=== PATIENT | male | born 1950 | race Caucasian/White ===

== ENCOUNTER 2019-05-20 15:01 | Inpatient (IN) | payer OTHER, BC ==
[2019-05-20 16:24] LABS: Absolute Lymphocytes (CBC) 1.3 K/uL (0.7-4.9); Basophils % 0.5 % (0-1.3); Hematocrit 31.4 % (39.6-49.0); Lymphocytes % 10.9 % (15.3-44.8); MPV 11.3 fL (7.6-11.3); RBC Red Blood Cell Count 3.34 M/uL (4.33-5.43)
[2019-05-20 16:28] LABS: Urine Blood NEGATIVE (NEG); Urine Glucose NEGATIVE (NEG); Urine Protein NEGATIVE (NEG); Urine Specific Gravity 1.015 (1.005-1.030); Urine pH 5.5 (5.0-7.0)
[2019-05-20 16:35] LABS: Bilirubin Direct 0.2 mg/dL (0-0.2); Bilirubin Total 0.5 mg/dL (0.2-1.0); Potassium 4.7 mmol/L (3.5-5.1); Protein, Total 7.4 g/dL (6.4-8.2)
[2019-05-20] MEDS ORDERED: NA CHLORIDE 0.9% 1,000 ML ONE (16:52)
--- NOTE | 2019-05-20 18:25 | RAD REPORT ---
EXAM DESCRIPTION: CT - Abdomen Pelvis Wo Contrast - 05/20/2019 6:16 pm CLINICAL HISTORY: abd pain COMPARISON: No comparisons TECHNIQUE: Axial [address] imaging of the abdomen and pelvis was performed without IV contrast. No IV contrast was given because of allergy, abnormal renal function, patient refusal or physician re quest. Oral contrast was given. All CT scans are performed using dose optimization technique as appropriate and may include automated exposure control or mA/KV adjustment according to patient size. FINDINGS: No suspicious findings in the lung bases. Small granuloma seen posterior lower right lung field. The liver, spleen and pancreas show no suspicious findings on non-contrast imaging. Cholecystectomy c lips are present. No biliary tree dilatation. No hydronephrosis or suspicious renal mass. No significant adrenal finding. Isodense renal masses an d pyelonephritis cannot be excluded in the absence of IV contrast. The urinary bladder is without sig nificant finding. Prostate gland and seminal vesicles normal range. No gastric dilatation or gastric wall thickening. Oral contrast does not quite reach the ileocecal va lve. No dilated large or small bowel. Air is present within the lumen of the proximal appendix. Old c ontrast or appendicolith present in the distal appendix. Distal appendix is prominent at 8 mm but no periappendiceal stranding seen. Current findings are not sufficient for an acute appendicitis diagnos is. No free air, free fluid or inflammatory stranding. No hernia, mass or bulky lymphadenopathy. No suspicious bony findings. IMPRESSION: Distal appendix is prominent in size with a small appendicolith or contrast present. Pro ximal appendix is air-filled. The current findings of the appendix and surrounding tissues are not yet sufficient for an appendicit is diagnosis. Remainder the study is without acute finding. Repeat imaging can be performed if the patient continues to have clinical findings or laboratory find ings suggesting progression cords acute appendicitis. Full assessment is limited is the absence of IV contrast.
[2019-05-20] MEDS ORDERED: PIPER/TAZO/NS 3.375gm 3.375 GM/100 ML BAG ONE (19:27)
[2019-05-20] MEDS ORDERED: MORPHINE 4 MG/ML SYR ONE (19:27)
[2019-05-20] MEDS ORDERED: ONDANSETRON 4 MG/2 ML VIAL IV PRN (20:06)
[2019-05-20] MEDS ORDERED: ACETAMINOPHEN 500 MG TAB PO PRN (20:06)
[2019-05-20] MEDS ORDERED: HYDROMORPHONE HCL 1 MG/ML INJ ONE (20:17)
[2019-05-20] MEDS ORDERED: D50W 25 GM/50 ML SYRINGE IV PRN (20:21)
[2019-05-20] MEDS ORDERED: GLUCAGON 1 MG/VIAL IM PRN (20:21)
[2019-05-20] MEDS: INSULIN -REGULAR HUMAN 50 UNIT/0.5 ML ML SQ SCH (21:00)
--- NOTE | 2019-05-20 21:05 | ER ---
Nurse's Notes [facility] Name: Fer Rogel Age: 68 yrs Sex: Male : 1950 Arrival Date: 05/20/2019 Time: 15:04 Bed 7 Private MD: Diagnosis: Lower abdominal pain, unspecified-RLQ Presentation: 05/20 15:08 Presenting complaint: Patient states: RLQ pain for the past 3 days that got worse ss today. Patient also reports diarrhea for the past 5 days. Denies N/V. Transition of care: patient was not received from another setting of care. Onset of symptoms was May 20, 2019. Risk Assessment: Do you want to hurt yourself or someone else? Patient reports no desire to harm self or others. Initial Sepsis Screen: Does the patient meet any 2 criteria? No. Patient's initial sepsis screen is negative. Does the patient have a suspected source of infection? Yes: Acute abdominal pain. Care prior to arrival: None. 15:08 Method Of Arrival: Wheelchair ss 15:08 Acuity: HODA 3 ss Triage Assessment: 15:16 General: Appears in no apparent distress. uncomfortable, Behavior is calm, cooperative, ss appropriate for age. Pain: Complains of pain in right lower quadrant Pain currently is 8 out of 10 on a pain scale. Neuro: Level of Consciousness is awake, alert, obeys commands. Cardiovascular: Patient's skin is warm and dry. Respiratory: Airway is patent Respiratory effort is even, unlabored, Respiratory pattern is regular, symmetrical. GI: Reports lower abdominal pain, diarrhea. Historical: - Allergies: 15:16 No Known Allergies; ss - Home Meds: 15:16 Lantus 100 unit/mL Sub-Q soln 70 to 80 units in the morning 35 units in the evening ss [Active]; Humalog 100 unit/mL Sub-Q crtg sliding scale [Active]; citalopram 20 mg tab 1 tab once daily [Active]; esomeprazole magnesium 40 mg oral cpDR 1 cap once daily [Active]; omega-3 fatty acids 1,000 mg oral cap daily [Active]; carvedilol 25 mg oral tab 1 tab 2 times per day [Active]; fenofibrate 150 mg oral cap 1 cap once daily [Active]; atorvastatin 40 mg oral tab 1 tab once daily [Active]; Furosemide Oral 2.5 tabs in the morning, 1/2 a tab at noon [Active]; spironolactone 50 mg Oral tab 2 tabs 2 times per day [Active]; allopurinol 300 mg Oral tab 1 tab once daily [Active]; Januvia 50 mg oral tab 1 tabs once daily [Active]; benazepril 5 mg oral tab 2 tabs 2 times per day [Active]; amlodipine 10 mg tab 1 tab once daily [Active]; - PMHx: 15:16 Diabetes - NIDDM; renal insufficiency; ss - Immunization history:: Flu vaccine is up to date. - Social history:: Smoking status: Patient/guardian denies using tobacco. - Ebola Screening: : Patient denies travel to an Ebola-affected area in the 21 days before illness onset. Screenin:30 Abuse screen: Denies threats or abuse. Denies injuries from another. Nutritional sv screening: No deficits noted. Tuberculosis screening: No symptoms or risk factors identified. Fall Risk None identified. Assessment: 15:30 General: Appears in no apparent distress. uncomfortable, well developed, Behavior is sv cooperative, appropriate for age, anxious. Pain: Complains of pain in right lower quadrant Pain currently is 8 out of 10 on a pain scale. Neuro: Level of Consciousness is awake, alert, obeys commands, Oriented to person, place, time, situation, Moves all extremities. Full function Gait is steady. Cardiovascular: Rhythm is sinus rhythm. Respiratory: Airway is patent Respiratory effort is even, unlabored, Respiratory pattern is regular, symmetrical. GI: Abdomen is round Abd is soft X 4 quads Abdomen is tender to palpation in right lower quadrant Reports lower abdominal pain, diarrhea, nausea. Derm: Skin is pink, warm \T\ dry. Musculoskeletal: Range of motion: intact in all extremities. 16:34 Reassessment: Patient appears in no apparent distress at this time. Patient and/or sv family updated on plan of care and expected duration. Pain level reassessed. Patient is alert, oriented x 3, equal unlabored respirations, skin warm/dry/pink. 16:35 Reassessment: Pt finished drinking oral contrast, CT notified. hb 18:00 Reassessment: Patient appears in no apparent distress at this time. No changes from sv previously documented assessment. Patient and/or family updated on plan of care and expected duration. Pain level reassessed. Patient is alert, oriented x 3, equal unlabored respirations, skin warm/dry/pink. 19:30 General: Appears uncomfortable. Neuro: Level of Consciousness is awake, alert, obeys lp1 commands, Oriented to person, place, time, situation, tremors noted, patient states normal. Respiratory: Respiratory effort is even, Respiratory pattern is regular. GI: Abdomen is round Bowel sounds present X 4 quads. Abdomen is tender to palpation in right lower quadrant. Derm: Skin is intact, Skin is dry, Skin is pale. 20:09 Reassessment: Patient and/or family updated on plan of care and expected duration. Pain bb level reassessed. Kay CANCINO at bedside for discussion of findings and recommendations pt to be admitted for further evaluation and treatment, pt and family verbalized understanding of and agree to plan of care. Pt reports pain is still 8/ new orders received pt medicated see NOV. 20:20 Reassessment: Attempted to call report at this time. lp1 20:25 Reassessment: Patient at 84% on RA after administration of Dilaudid IV; Placed on NC at lp1 2L, O2 at 95%. 20:40 Reassessment: Dr De La Cruz at bedside for discussion of findings and recommendations bb with pt and spouse. Vital Signs: 15:16 BP 159 / 67; Pulse 60; Resp 18; Temp 97.2(TE); Pulse Ox 98% on R/A; Weight 90.72 kg ss (R); Height 5 ft. 11 in. (180.34 cm) (R); Pain 8/10; 16:35 BP 160 / 61; Pulse 66; Resp 21; Pulse Ox 98% ; sv 17:15 BP 157 / 58; Pulse 66; Resp 19; Pulse Ox 95% ; sv 18:00 BP 130 / 48; Pulse 53; Resp 18; Pulse Ox 97% ; sv 19:35 BP 155 / 57; Pulse 60; Resp 19; Temp 98.6(O); Pulse Ox 96% on R/A; Pain 10/10; lp1 20:11 BP 130 / 49; Pulse 60; Resp 20 S; Temp 100.5(O); Pulse Ox 97% on R/A; Pain 8/10; bb 20:30 BP 140 / 51; Pulse 62; Resp 19; Temp 101.7(O); Pulse Ox 97% on 2 lpm NC; lp1 15:16 Body Mass Index 27.89 (90.72 kg, 180.34 cm) ED Course: 15:04 Patient arrived in ED. mr 15:10 Triage completed. ss 15:16 Arm band placed on Patient placed in an exam room. ss 15:19 Ahsan Kaba PA is PHCP. cp 15:19 Curtis Garduno MD is Attending Physician. cp 15:22 Constanza Schaefer, RN is Primary Nurse. sv 15:30 Patient has correct armband on for positive identification. Bed in low position. Call sv light in reach. Adult w/ patient. medical technician assistant on. Pulse ox on. NIBP on. Door closed. Warm blanket given. Head of bed elevated. 15:30 Initial lab(s) drawn, by me, sent to lab. Inserted saline lock: 20 gauge in right sv antecubital area, using aseptic technique. Blood collected. Flushed right antecubital with 5 ml normal saline. 15:55 Urine collected: clean catch specimen, clear, mallika colored. jb1 18:32 CT Abd/Pelvis - PO Contrast Only Sent. sv 18:32 Urine Microscopic Only Sent. sv 18:32 Lactate Sent. sv 18:32 Lactate Sent. sv 18:32 Basic Metabolic Panel Sent. sv 18:32 CBC with Diff Sent. sv 18:32 Creatinine for Radiology Sent. sv 18:32 Hepatic Function Sent. sv 18:32 Lipase Sent. sv 19:08 Report given to Rachel OLIVEIRA. sv 19:09 Primary Nurse role handed off by Constanza Schaefer, TEE sv 19:21 Claudia Dumont, TEE is Primary Nurse. lp1 19:55 Monty Singh MD is Hospitalizing Provider. cp 20:02 No provider procedures requiring assistance completed. Patient admitted, IV remains in lp1 place. Administered Medications: 15:55 Drug: Zofran 4 mg Route: IVP; Site: left antecubital; sv 16:26 Follow up: Response: No adverse reaction hb 15:55 Drug: NS 0.9% 500 ml Route: IV; Rate: bolus; Site: left antecubital; sv 16:26 Follow up: Response: No adverse reaction; IV Status: Completed infusion; IV Intake: hb 500ml 15:57 Drug: morphine 4 mg {Note: RASS 1.} Route: IVP; Site: left antecubital; sv 16:26 Follow up: Response: No adverse reaction hb 16:25 Drug: NS 0.9% 1000 ml Route: IV; Rate: 100 ml/hr; Site: right antecubital; hb 20:57 Follow up: IV Status: IV converted to saline lock; IV Intake: 500ml lp1 16:52 Drug: NS 0.9% 1000 ml Route: IV; Rate: 1000 ml; Site: left antecubital; sv 18:00 Follow up: Response: No adverse reaction; IV Status: Completed infusion; IV Intake: sv 1000ml 16:52 CANCELLED (Duplicate Order): NS 0.9% 1000 ml IV at 1 bolus Per protocol; 1000 mL bolus sv 19:35 Drug: morphine 4 mg {Note: RASS 0.} Route: IVP; Site: left antecubital; lp1 20:00 Follow up: Response: Pain is unchanged, physician notified; RASS: Alert and Calm (0) lp1 19:35 Drug: Zosyn 3.375 grams Route: IVPB; Infused Over: 60 mins; Site: left antecubital; lp1 20:45 Follow up: IV Status: Completed infusion; IV Intake: 100ml lp1 20:12 Drug: Tylenol 1000 mg Route: PO; bb 20:26 Drug: Dilaudid 1 mg {Note: RASS 0.} Route: IVP; Site: left antecubital; lp1 20:39 Follow up: Response: No adverse reaction; Pain is decreased; RASS: Drowsy (-1) bb Point of Care Testing: Blood Glucose: 18:10 Blood Glucose: 130 mg/dL; sv 19:40 Blood Glucose: 118 mg/dL; oe Ranges: Intake: 16:26 IV: 500ml; Total: 500ml. hb 16:34 PO: 500ml (Contrast); Total: 1000ml. sv 18:00 IV: 1000ml; Total: 2000ml. sv 20:45 IV: 100ml; Total: 2100ml. lp1 20:57 IV: 500ml; Total: 2600ml. lp1 16:34 Called and informed Mehrdad in CT pt finished contrast. sv Outcome: 19:56 Decision to Hospitalize by Provider. cp 20:03 Condition: stable lp1 20:03 Instructed on the need for admit. 20:52 Admitted to Med/surg accompanied by tech, via wheelchair, room 210, with chart, Report lp1 called to TEE Hansen 21:15 Patient left the ED. lp1 Signatures: Julio Bocanegra Stephanie, RN RN Lizett Riley, Rachel RN RN bb Chhaya Miner RN RN ss Claudia Dumont RN RN lp1 Ahsan Kaba PA PA cp Baxter, Heather RN RN Warner Nicole Corrections: (The following items were deleted from the chart) 20:12 20:09 Reassessment: Patient and/or family updated on plan of care and expected bb duration. Pain level reassessed. Kay CANCINO at bedside for discussion of findings and recommendations pt to be admitted for further evaluation and treatment, pt and family verbalized understanding of and agree to plan of care. bb 20:59 20:30 BP 140 / 51; Pulse 62bpm; Resp 19bpm; Pulse Ox 97% 2 lpm Nasal Cannula; lp1 lp1 21:41 21:25 Patient left the ED. bb lp1
--- NOTE | 2019-05-20 21:06 | EDPHYS ---
Physician Documentation [facility] Name: Fer Rogel Age: 68 yrs Sex: Male : 1950 Arrival Date: 05/20/2019 Time: 15:04 Bed 7 Private MD: ED Physician Curtis Garduno HPI: 05/20 15:35 This 68 yrs old Male presents to ER via Wheelchair with complaints of cp Abdominal Pain, Diarrhea. 15:35 The patient presents with abdominal pain right lower quadrant. Onset: The cp symptoms/episode began/occurred yesterday, and became worse today. Associated signs and symptoms: Pertinent positives: diarrhea times 5 days. Historical: - Allergies: 15:16 No Known Allergies; ss - Home Meds: 15:16 Lantus 100 unit/mL Sub-Q soln 70 to 80 units in the morning 35 units in the evening ss [Active]; Humalog 100 unit/mL Sub-Q crtg sliding scale [Active]; citalopram 20 mg tab 1 tab once daily [Active]; esomeprazole magnesium 40 mg oral cpDR 1 cap once daily [Active]; omega-3 fatty acids 1,000 mg oral cap daily [Active]; carvedilol 25 mg oral tab 1 tab 2 times per day [Active]; fenofibrate 150 mg oral cap 1 cap once daily [Active]; atorvastatin 40 mg oral tab 1 tab once daily [Active]; Furosemide Oral 2.5 tabs in the morning, 1/2 a tab at noon [Active]; spironolactone 50 mg Oral tab 2 tabs 2 times per day [Active]; allopurinol 300 mg Oral tab 1 tab once daily [Active]; Januvia 50 mg oral tab 1 tabs once daily [Active]; benazepril 5 mg oral tab 2 tabs 2 times per day [Active]; amlodipine 10 mg tab 1 tab once daily [Active]; - PMHx: 15:16 Diabetes - NIDDM; renal insufficiency; ss - Immunization history:: Flu vaccine is up to date. - Social history:: Smoking status: Patient/guardian denies using tobacco. - Ebola Screening: : Patient denies travel to an Ebola-affected area in the 21 days before illness onset. ROS: 15:40 Constitutional: Positive for chills, Negative for fever, poor PO intake. cp 15:40 Eyes: Negative for injury, pain, redness, and discharge. cp 15:40 ENT: Negative for drainage from ear(s), ear pain, sore throat, difficulty swallowing, difficulty handling secretions. 15:40 Cardiovascular: Negative for chest pain, edema, palpitations. 15:40 Respiratory: Negative for shortness of breath, wheezing. 15:40 Abdomen/GI: Positive for abdominal pain, Negative for vomiting, diarrhea, constipation, black/tarry stool, rectal bleeding. 15:40 Back: Negative for pain at rest, pain with movement. 15:40 : Negative for urinary symptoms, testicular pain 15:40 Skin: Negative for rash. 15:40 Neuro: Negative for altered mental status, headache, numbness, syncope, weakness. 15:40 All other systems are negative. Exam: 15:50 Constitutional: The patient appears alert, awake, non-toxic, well developed, well cp nourished, diaphoretic, uncomfortable. 15:50 Head/Face: Normocephalic, atraumatic. cp 15:50 Eyes: Periorbital structures: appear normal, Conjunctiva: normal, no exudate, no injection, Sclera: no appreciated abnormality, Lids and lashes: appear normal, bilaterally. 15:50 ENT: External ear(s): are unremarkable, Nose: is normal, Mouth: Lips: moist, Oral mucosa: pink and intact, moist, Posterior pharynx: is normal, airway is patent, no erythema, no exudate. 15:50 Neck: ROM/movement: is normal, is supple, without pain, no range of motions limitations, no meningismus, no nuchal rigidity. 15:50 Chest/axilla: Inspection: normal, Palpation: is normal, no crepitus, no tenderness. 15:50 Cardiovascular: Rate: normal, Rhythm: regular, Edema: is not appreciated, JVD: is not appreciated. 15:50 Respiratory: the patient does not display signs of respiratory distress, Respirations: normal, no use of accessory muscles, no retractions, no splinting, no tachypnea, labored breathing, is not present, Breath sounds: are clear throughout, no decreased breath sounds, no stridor, no wheezing. 15:50 Abdomen/GI: Inspection: abdomen appears normal, Bowel sounds: active, all quadrants, Palpation: severe abdominal tenderness, in the right lower quadrant, involuntary guarding, is elicited in the right lower quadrant. 15:50 Back: pain, is absent, ROM is normal. 15:50 Skin: no rash present. 15:50 Neuro: Orientation: to person, place \T\ time. Mentation: is normal, Cerebellar function: is grossly normal, Motor: is normal. Vital Signs: 15:16 BP 159 / 67; Pulse 60; Resp 18; Temp 97.2(TE); Pulse Ox 98% on R/A; Weight 90.72 kg ss (R); Height 5 ft. 11 in. (180.34 cm) (R); Pain 8/10; 16:35 BP 160 / 61; Pulse 66; Resp 21; Pulse Ox 98% ; sv 17:15 BP 157 / 58; Pulse 66; Resp 19; Pulse Ox 95% ; sv 18:00 BP 130 / 48; Pulse 53; Resp 18; Pulse Ox 97% ; sv 19:35 BP 155 / 57; Pulse 60; Resp 19; Temp 98.6(O); Pulse Ox 96% on R/A; Pain 10/10; lp1 20:11 BP 130 / 49; Pulse 60; Resp 20 S; Temp 100.5(O); Pulse Ox 97% on R/A; Pain 8/10; bb 20:30 BP 140 / 51; Pulse 62; Resp 19; Temp 101.7(O); Pulse Ox 97% on 2 lpm NC; lp1 15:16 Body Mass Index 27.89 (90.72 kg, 180.34 cm) ss MDM: 15:36 Patient medically screened. 19:25 Data reviewed: vital signs, nurses notes, lab test result(s), radiologic studies, CT cp scan, I have discussed the patient's presentation/case with the attending Emergency Department Physician;. 19:25 Counseling: I had a detailed discussion with the patient and/or guardian regarding: the cp historical points, exam findings, and any diagnostic results supporting the discharge/admit diagnosis, lab results, radiology results, the need for further work-up and treatment in the hospital. Response to treatment: the patient's symptoms have mildly improved after treatment. 19:33 Physician consultation: León De La Cruz MD was called at 19:25, was contacted at 19:25, regarding consult, requests admittance to hospitalist services for abdominal pain and will see patient on floor later tonight or tomorrow for surgical evaluation. 19:51 Physician consultation: Monty Singh MD was called at 19:52, was contacted at 19:52, cp regarding admission, to the medical/surgical unit. patient's condition, wants Cipro 200 mg bid and Flagyl 500 mg TID. 05/20 15:25 Order name: Basic Metabolic Panel sv 05/20 15:25 Order name: CBC with Diff sv 05/20 15:25 Order name: Creatinine for Radiology sv 05/20 15:25 Order name: Hepatic Function sv 05/20 15:25 Order name: Lipase sv 05/20 15:42 Order name: Lactate sv 05/20 15:44 Order name: Lactate cp 05/20 15:44 Order name: Urine Microscopic Only cp 05/20 18:26 Order name: Urine Dipstick-Ancillary; Complete Time: 19:22 EDMS 05/20 18:26 Order name: Basic Metabolic Panel; Complete Time: 19:22 EDMS 05/20 18:26 Order name: Liver (Hepatic) Function; Complete Time: 19:22 EDMS 05/20 18:26 Order name: Lipase; Complete Time: 19:22 EDMS 05/20 18:26 Order name: CBC with Automated Diff; Complete Time: 19:22 EDMS 05/20 18:26 Order name: Creatinine (Radiology Only); Complete Time: 19:22 EDMS 05/20 15:44 Order name: CT Abd/Pelvis - PO Contrast Only cp 05/20 18:28 Order name: Lactate; Complete Time: 19:22 EDMS 05/20 18:31 Order name: Glucose, Ancillary Testing; Complete Time: 19:22 EDMS 05/20 19:02 Order name: Lactate hb 05/20 19:41 Order name: Lactate Sepsis 2 HR Follow-up; Complete Time: 19:53 EDMS 05/20 19:46 Order name: Glucose, Ancillary Testing; Complete Time: 19:53 EDMS 05/20 15:25 Order name: IV Saline Lock; Complete Time: 15:42 sv 05/20 15:25 Order name: Labs collected and sent; Complete Time: 15:42 sv 05/20 15:44 Order name: Urine Dipstick-Ancillary (obtain specimen); Complete Time: 15:56 cp 05/20 20:09 Order name: Accucheck Blood Glucose; Complete Time: 20:12 cp Administered Medications: 15:55 Drug: Zofran 4 mg Route: IVP; Site: left antecubital; sv 16:26 Follow up: Response: No adverse reaction hb 15:55 Drug: NS 0.9% 500 ml Route: IV; Rate: bolus; Site: left antecubital; sv 16:26 Follow up: Response: No adverse reaction; IV Status: Completed infusion; IV Intake: hb 500ml 15:57 Drug: morphine 4 mg {Note: RASS 1.} Route: IVP; Site: left antecubital; sv 16:26 Follow up: Response: No adverse reaction hb 16:25 Drug: NS 0.9% 1000 ml Route: IV; Rate: 100 ml/hr; Site: right antecubital; hb 20:57 Follow up: IV Status: IV converted to saline lock; IV Intake: 500ml lp1 16:52 Drug: NS 0.9% 1000 ml Route: IV; Rate: 1000 ml; Site: left antecubital; sv 18:00 Follow up: Response: No adverse reaction; IV Status: Completed infusion; IV Intake: sv 1000ml 16:52 CANCELLED (Duplicate Order): NS 0.9% 1000 ml IV at 1 bolus Per protocol; 1000 mL bolus sv 19:35 Drug: morphine 4 mg {Note: RASS 0.} Route: IVP; Site: left antecubital; lp1 20:00 Follow up: Response: Pain is unchanged, physician notified; RASS: Alert and Calm (0) lp1 19:35 Drug: Zosyn 3.375 grams Route: IVPB; Infused Over: 60 mins; Site: left antecubital; lp1 20:45 Follow up: IV Status: Completed infusion; IV Intake: 100ml lp1 20:12 Drug: Tylenol 1000 mg Route: PO; bb 20:26 Drug: Dilaudid 1 mg {Note: RASS 0.} Route: IVP; Site: left antecubital; lp1 20:39 Follow up: Response: No adverse reaction; Pain is decreased; RASS: Drowsy (-1) bb Point of Care Testing: Blood Glucose: 18:10 Blood Glucose: 130 mg/dL; sv 19:40 Blood Glucose: 118 mg/dL; oe Ranges: Critical Glucose Levels:Adult <50 mg/dl or >400 mg/dl <40 mg/dl or >180 mg/dl Disposition: 05/21 07:21 Co-signature as Attending Physician, Curtis Garduno MD I agree with the assessment and kdr plan of care. Disposition: 05/20/19 19:56 Hospitalization ordered by Monty Singh for Inpatient Admission. Preliminary diagnosis is Lower abdominal pain, unspecified - RLQ. - Bed requested for Telemetry/MedSurg (Inpatient). - Status is Inpatient Admission. bb - Condition is Stable. - Problem is new. - Symptoms have improved. UTI on Admission? No Signatures: Dispatcher [employer] EDMS Constanza Schaefer RN RN Marisa Alvarez, RN RN Curtis Garduno MD MD [facility] Rachel Mart RN RN bb Chhaya Miner RN TEE ss Claudia Dumont RN RN lp1 Ahsan Kaba PA PA Clover Frankel RN RN Corrections: (The following items were deleted from the chart) 05/20 16:52 16:50 NS 0.9% 1000 ml IV at 1 bolus Per protocol; 1000 mL bolus ordered. cp 20:15 19:56 Hospitalization Ordered by Monty Singh MD for Inpatient Admission. Preliminary mw diagnosis is Lower abdominal pain, unspecified - RLQ. Bed requested for Telemetry/MedSurg (Inpatient). Status is Inpatient Admission. Condition is Stable. Problem is new. Symptoms have improved. UTI on Admission? No. cp 21:25 20:15 05/20/2019 19:56 Hospitalization Ordered by Monty Singh MD for Inpatient bb Admission. Preliminary diagnosis is Lower abdominal pain, unspecified - RLQ. Bed requested for Telemetry/MedSurg (Inpatient). Status is Inpatient Admission. Condition is Stable. Problem is new. Symptoms have improved. UTI on Admission? No. mw
[2019-05-20] MEDS: D5 0.45 NS 1,000 ML IV SCH (22:20)
[2019-05-20] MEDS: Ciprofloxacin 200mg IV 200 MG/100 ML IV.SOLN. IV SCH (22:23)
[2019-05-21] MEDS: METRONIDAZOLE 500mg IVPB 500 MG/100 ML BAG IV SCH ×4 (00:04→17:30)
--- NOTE | 2019-05-21 01:47 | CON ---
Date of Consultation: 05/20/2019 History Of Present Illness: This is the case of a 68-year-old person who comes to the ER today after abdominal pain for 1-1/2 days of duration. He has the pain every now and then. 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 This was not getting better, so he decided to co me to the ER. He denies any vomiting, any diarrhea or melena, any hematochezia. The patient states his last colonoscopy was less than a year ago by Dr. Mullen and he claims that he does have diverticulu m. No polyps as per patient. Since the pain was not getting better, he decided to come to the ER. He pain is mainly generalized in the lower abdomen . No dysuria. No hematuria. He does n ot remember eating anything unusual. He does not have any family member sick at home. No recent tra veling out of the country. Past Medical History: Includes Petit esophagus; GE reflux; diabetes, insulin dependent; hypertensi on. Medications: He does not have his medication list with him. They are bringing him from his home in [place]. Family History: Noncontributory. No family history of colon cancer. Allergies: NONE. Social History: He does not smoke. He does not drink alcohol. Review of Systems: Ten points otherwise unremarkable. Physical Examination: Constitutional: Patient is awake and alert. HEENT: Pupils are equal and reactive, anicteric. Neck: Supple. Chest: Clear. Abdomen: Generalized mild tenderness, lower abdomen more than upper abdomen. No rebound. No hernia s palpated in the inguinal region. Rectal: Deferred. Extremities: Good capillary refill. Laboratory Data: Blood work shows a WBC count of 11.6 with platelets of 161. His sugars are 130. H e did not take his insulin medication this morning. Chloride is 109. BUN is 76, creatinine is 3.69. Patient has a history of chronic kidney disease with 30%, as per , remain of function of his ki dneys. Glucose at this admission was 174. Lipase 892. Total bilirubin 0.5, AST 34, ALT 38. Imaging Procedure: CAT scan of the abdomen and pelvis interpreted by Dr. Hennessy as liver, spleen, a nd pancreas shows no suspicious findings. Cholecystectomy clips are present. No biliary tree dilata tion. No hydronephrosis. The urinary bladder is without significant findings. No gastric dilatatio n. Oral contrast does not quite reach the ileocecal valve. No dilated small or large bowel. Air is present within the lumen of the proximal appendix. Old contrast or appendicolith present in the dis marcus appendix. Distal appendix prominent but no periappendiceal stranding and the current findings ar e not sufficient for an acute appendicitis. Diagnosis as per radiologist. No hernias or masses seen . No inflammatory stranding. No free air. No free fluid. Assessment And Plan: A 68-year-old patient with day and a half of abdominal pain. WBC count of 11. Multiple medical problems. We are going to optimize him right now, hydrate him. I explained to the patient different options. CAT scan is not a definitive diagnosis for a few abdominal pathology, ju st give us an idea of what is going on inside. Although one day and a half, we expect the appendix t o be inflamed and we do not see it at this moment, there is some exception to the rule. At the same time, he is concerned about going for surgery when he does not need to. Obviously, he is always thin kenneth about his 30% kidneys and the results of any surgical intervention and we understand. So, this is what we then explained to him. Definitely, he should not go home. We need him here right now. H e may be developing some pathology that I need to know in the next few hours. We are going to contin ue with hydration and have no problem with his medication he is receiving right now including the ant ibiotics but at the same time, he has to understand if in the next few hours clinically he get worse or any imaging that we do change, he has to allow me to do a diagnostic laparoscopy, and in that case , possible appendectomy or any other indicated procedures in that area. He understands the pros and cons of the diagnosis. He had agreed to stay with us. He is bringing his medications. We are going to get him into the medical service and the surgical service since he has multiple medical issues. I explained to him the benefits, alternatives, and risks of surgery, what may include from diagnostic lap to even laparotomy, that include but not limited to infection, bleeding, damage to adjacent stru ctures, anesthesia complication appendix, negative exploration, AL, or even . ____ was there also without IV contrast obviously for his kidney function. So, if in the next few ho urs, we notice the patient clinically does not improve then we have to put the camera to look also fo r any other pathology that include also ischemic issues. He understands the plan. He is fully aware of that. He feels better at this moment. Although we explained to him there may be some effects al so from some therapy that he may receive. Understanding that he agree to stay with us and we are goi ng to continue with serial abdominal examination and a repeat CT scan. MEGAN/KATERIN Voice ID: [id number] Report ID: [id number]
[2019-05-21 05:09] LABS: Urine Bacteria <20 /HPF (NONE SEEN); Urine RBC NONE SEEN /HPF (NONE SEEN)
[2019-05-21 05:10] LABS: Urine Culture Reflex Order NOT NEEDED
[2019-05-21 05:36] LABS: Absolute Lymphocytes (CBC) 1.7 K/uL (0.7-4.9); Basophils % 0.2 % (0-1.3); Lymphocytes % 11.9 % (15.3-44.8); MPV 10.8 fL (7.6-11.3)
[2019-05-21 05:41] LABS: Albumin 3.7 g/dL (3.4-5.0); Bilirubin Direct 0.3 mg/dL (0-0.2); Bilirubin Total 0.6 mg/dL (0.2-1.0); Potassium 4.5 mmol/L (3.5-5.1); Protein, Total 6.9 g/dL (6.4-8.2)
[2019-05-21] MEDS ORDERED: INSULIN LISPRO 100 UNIT/1 ML SQ SCH (06:45)
[2019-05-21] MEDS ORDERED: HYDRALAZINE HCL 25 MG TABLET PO PRN (07:00)
[2019-05-21] MEDS: INSULIN -REGULAR HUMAN 50 UNIT/0.5 ML ML SQ SCH ×4 (07:30→20:22)
[2019-05-21] MEDS: PANTOPRAZOLE 40MG TABLET PO SCH (08:00)
[2019-05-21] MEDS: Ciprofloxacin 200mg IV 200 MG/100 ML IV.SOLN. IV SCH ×2 (08:02→20:20)
[2019-05-21] MEDS: FENOFIBRATE 160 MG TAB PO SCH (09:00)
[2019-05-21] MEDS: FUROSEMIDE 40 MG TABLET PO SCH ×2 (09:00→12:06)
[2019-05-21] MEDS: INSULIN GLARGINE 100 UNITS/ML SQ SCH (09:00)
[2019-05-21] MEDS: SITAGLIPTIN PHOS 100 MG TAB PO SCH ×2 (09:00→12:08)
[2019-05-21] MEDS: ALLOPURINOL 300 MG TAB PO SCH ×2 (09:00→12:07)
[2019-05-21] MEDS: BENAZEPRIL 10 MG TAB PO SCH ×2 (09:00→20:21)
[2019-05-21] MEDS: CITALOPRAM 10 MG TABLET PO SCH ×2 (09:00→12:07)
[2019-05-21] MEDS: CARVEDILOL 25 MG TAB PO SCH ×3 (09:00→20:21)
[2019-05-21] MEDS: DOCOSAHEXANOIC AC/EPA 1000 MG PO SCH ×2 (09:00→20:24)
[2019-05-21] MEDS: SPIRONOLACTONE 25 MG TABLET PO SCH ×2 (09:00→20:22)
[2019-05-21] MEDS: AMLODIPINE 10 MG TAB PO SCH ×2 (09:00→12:08)
[2019-05-21] MEDS ORDERED: NA CHLORIDE 0.9% 1,000 ML ONE (09:38)
[2019-05-21] MEDS ORDERED: HYDROMORPHONE HCL 1 MG/ML INJ ONE (09:55)
[2019-05-21] MEDS ORDERED: MIDAZOLAM HCL 2 MG/2 ML INJ ONE (10:11)
--- NOTE | 2019-05-21 10:17 | RAD REPORT ---
EXAM DESCRIPTION: Abdomen Pelvis Wo Contrast ADDENDUM #1 THIS REPORT CONTAINS FINDINGS THAT MAY BE CRITICAL TO PATIENT CARE: The findings were verbally discussed via telephone conference with Dr. De La Cruz by Dr. Colin Mujica on 05/21/2019 5:56 AM CDT .The results were acknowledged and understood. Electronically signed by: Sanna Mujica MD 05/21/2019 5:57 AM CDT End of Addendum EXAM DESCRIPTION: CT Abdomen and Pelvis Without Intravenous Contrast CLINICAL HISTORY: The patient is 68 years old and is Male; follow up for acute appendicitis TECHNIQUE: Axial computed tomography images of the abdomen and pelvis without intravenous contrast. Sagittal and coronal reformatted images were created and reviewed. This CT exam was performed usi ng one or more of the following dose reduction techniques: automated exposure control, adjustment o f the mA and/or kV according to patient size, and/or use of iterative reconstruction technique. COMPARISON: CT of the abdomen and pelvis May 20, 2019 at 1818 hours. FINDINGS: LUNG BASES: Unremarkable. No mass. No consolidation. HEART: The heart is enlarged. ABDOMEN: LIVER: Homogeneous without focal mass. GALLBLADDER AND BILE DUCTS: Surgical clips are present in the right upper quadrant, consistent w ith previous cholecystectomy. PANCREAS: Unremarkable. No ductal dilation. SPLEEN: Unremarkable. ADRENALS: Unremarkable. No mass. KIDNEYS AND URETERS: Bilateral nonspecific perinephric stranding is present. There is no hydrone phrosis or hydroureter of either kidney. No obstructing renal or ureteral calculus is seen. STOMACH AND BOWEL: The stomach is nearly empty. The small bowel is normal in caliber. Contrast a nd stool are present throughout the colon. Scattered colonic diverticula are noted without surroundin g inflammation. There is no bowel obstruction. PELVIS: APPENDIX: The tip of the appendix has increased in size measuring up to 1.1 cm. Interval increas e in surrounding inflammatory stranding is noted. Mucosal thickening involving the majority of the ap pendix is present. The appendix is now near completely filled with fluid. High density material is al so present which may be a combination of contrast and appendicolith. BLADDER: The bladder is well distended. No stones. REPRODUCTIVE: Unremarkable as visualized. ABDOMEN and PELVIS: INTRAPERITONEAL SPACE: Unremarkable. No free air. No significant fluid collection. BONES/JOINTS: No acute fracture. SOFT TISSUES: The soft tissues are normal. VASCULATURE: Atherosclerosis of the vasculature is present. No abdominal aortic aneurysm. LYMPH NODES: Unremarkable. No enlarged lymph nodes. IMPRESSION: Findings consistent with acute appendicitis. No periappendiceal abscess. Electronically signed by: Sanna Mujica MD 05/21/2019 5:13 AM CDT Due to temporary technical issues with the PACS/Fluency reporting system, reports are being signed by the in house radiologist as a courtesy to ensure prompt reporting. The interpreting radiologist is f ully responsible for the content of the report.
[2019-05-21] MEDS ORDERED: FENTANYL CITR 100 MCG/2 ML ONE (10:22)
[2019-05-21] MEDS ORDERED: PROPOFOL 200 MG/20 ML VIAL IV ONE (10:22)
[2019-05-21] MEDS ORDERED: ROCURONIUM 50 MG/5 ML VIAL IV ONE (10:23)
[2019-05-21] MEDS ORDERED: LIDOCAINE 1% MPF 5 ML VIAL ONE (10:23)
[2019-05-21] MEDS ORDERED: GLYCOPYRROLATE 0.2 MG/ML SYR ONE (10:44)
[2019-05-21] MEDS ORDERED: KETOROLAC 30 MG/ML INJ ONE (10:45)
[2019-05-21] MEDS ORDERED: ONDANSETRON 4 MG/2 ML VIAL ONE (11:03)
[2019-05-21] MEDS ORDERED: NEOSTIGMINE 1 MG/ML -10 ML VIAL ONE (11:03)
--- NOTE | 2019-05-21 11:06 | P.BOP ---
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
--- NOTE | 2019-05-21 15:27 | P.HP ---
Certification for Inpatient Patient admitted to: Inpatient With expected LOS: >2 Midnights Practitioner: I am a practitioner with admitting privileges, knowledge of patient current condition, hospital course, and medical plan of care. Services: Services provided to patient in accordance with Admission requirements found in Title 42 Section 412.3 of the Code of Federal Regulations Patient History Date of Service: 05/21/19 Reason for admission: ABDOMEN PAIN History of Present Illness: MR. WHITE IS A DIABETIC WITH MANY COMPLICATIONS LIKE CAD, CKD, NEUROPATHY COMES WITH LOWER ABDOMEN NEFTALY ON R SIDE. HE HAD REPEAT CT SCAN TODAY TO CONFIRM APPENDICITIS AND DR. MULLER DID SURGERY THIS AM. FAMILY IS NOT COMFORTABLE TAKING HIM HOME THIS PM AND I UNDERSTAND HE HAS MANY CHRONIC CONDITIONS AND HIS BASELINE CREATININE IS ABOUT 3.6. Allergies No Known Allergies Allergy (Verified 05/20/19 15:59) Home Medications: Allopurinol [Zyloprim*] 300 mg PO DAILY 05/21/19 Amlodipine [Norvasc*] 10 mg PO DAILY 05/21/19 Atorvastatin Calcium [Lipitor] 40 mg PO BEDTIME 05/21/19 Benazepril HCl 5 mg PO SEECOM 05/21/19 Carvedilol [Coreg*] 25 mg PO BID 05/21/19 Ciprofloxacin HCl [Cipro 500 MG Tablet] 500 mg PO BID #12 tab 05/21/19 Citalopram [Celexa*] 20 mg PO DAILY 05/21/19 Codeine/APAP [Tylenol W/Codeine #3 tab] 1 tab PO Q4HP PRN #30 tab 05/21/19 Esomeprazole Magnesium 40 mg PO DAILY 05/21/19 Fenofibrate [Tricor*] 145 mg PO BEDTIME 05/21/19 Furosemide [Lasix] 40 mg PO SEECOM 05/21/19 Hydralazine [Apresoline*] 25 mg PO SEECOM 05/21/19 Insulin Glargine Human [Lantus*] 70 units SQ SEECOM 05/21/19 Insulin Lispro [Humalog*] 45 units SQ SEECOM 05/21/19 [place]-3 Fatty Acids [Keystone-3] 1,000 mg PO BID 05/21/19 Sitagliptin Phosphate [Januvia*] 50 mg PO DAILY 05/21/19 Spironolactone [Aldactone] 50 mg PO BID 05/21/19 metroNIDAZOLE [Flagyl] 500 mg PO Q6H #20 tablet 05/21/19 - Past Medical/Surgical History Has patient received pneumonia vaccine in the past: Yes Diabetic: Yes -: Diabetes -: Kidney disease -: Cholecystectomy -: Exploratory laparotomy - Family History Father -: Hypertension, Diabetes Mother -: Heart disease - Social History Smoking Status: Former smoker Alcohol use: No CD- Drugs: No Caffeine use: Yes Place of Residence: Home Review of Systems 10-point ROS is otherwise unremarkable General: Weakness, Malaise Gastrointestinal: Abdominal Pain Physical Examination - Vital Signs Temperature: 98.2 F Blood Pressure: 130/61 Pulse: 58 Respirations: 16 Pulse Ox (%): 95 - Physical Exam General: Alert, Mild distress HEENT: Atraumatic, PERRLA, Mucous membr. moist/pink, EOMI, Sclerae nonicteric Neck: Supple, 2+ carotid pulse no bruit, No LAD, Without JVD or thyroid abnormality Respiratory: Clear to auscultation bilaterally, Normal air movement Cardiovascular: Regular rate/rhythm, Normal S1 S2 Gastrointestinal: Tenderness (RLQ) Musculoskeletal: No tenderness Integumentary: No rashes Neurological: Normal gait, Normal speech, Normal strength at 5/5 x4 extr, Normal tone, Normal affect Lymphatics: No axilla or inguinal lymphadenopathy - Studies Laboratory Data (last 24 hrs) 05/20/19 15:32: Creatinine 3.63 H 05/20/19 15:32: WBC 11.6 H, Hgb 10.5 L, Hct 31.4 L, Plt Count 161 05/20/19 15:32: Sodium 140, Potassium 4.7, BUN 76 H, Creatinine 3.69 H, Glucose 174 H, Total Bilirubin 0.5, AST 34, ALT 38, Alkaline Phosphatase 30 L, Lipase 892 H 05/20/19 15:25: Creatinine Cancelled 05/20/19 15:25: WBC Cancelled, Hgb Cancelled, Hct Cancelled, Plt Count Cancelled 05/20/19 15:25: Sodium Cancelled, Potassium Cancelled, BUN Cancelled, Creatinine Cancelled, Glucose Cancelled, Total Bilirubin Cancelled, AST Cancelled, ALT Cancelled, Alkaline Phosphatase Cancelled, Lipase Cancelled Assessment and Plan - Problems (Diagnosis) (1) Acute appendicitis Current Visit: Yes Status: Acute Plan: SURGERY DONE THIS AM. STABLE PER DR MULLER. I SAW HIM BEFORE SURGERY. HE WAS IN MODERATE PAIN IN AM. HE WILL GO HOME IN AM. CHECK A1C HE ALREADY HAS CKD. CHECK LDL. Qualifiers: Acute appendicitis type: with localized peritonitis Appendicitis perforation presence: without perforation (2) Diabetes Current Visit: Yes Status: Acute (3) CKD stage 4 due to type 2 diabetes mellitus Current Visit: Yes Status: Acute - Advance Directives Does patient have a Living Will: No Does patient have a Durable POA for Healthcare: No
[2019-05-21] MEDS: CODEINE 30MG/APAP 300MG TAB PO PRN ×2 (16:36→20:21)
[2019-05-21] MEDS ORDERED: FUROSEMIDE 20 MG TABLET PO SCH (17:00)
[2019-05-21] MEDS: D5 0.45 NS 1,000 ML IV SCH (17:00)
[2019-05-21] MEDS ORDERED: ATORVASTATIN 40 MG TAB PO SCH (21:00)
--- NOTE | 2019-05-21 23:26 | OP ---
Date of Procedure: 05/21/2019 Surgeon: León De La Cruz MD Correction Officer Head: VERONICA Lamar. Preoperative Diagnoses: Obesity, diabetes, renal insufficiency, acute appendicitis. Postoperative Diagnoses: Obesity, diabetes, renal insufficiency, acute appendicitis. Procedure: Laparoscopic appendectomy. Anesthesia: General plus local. Findings: Acute appendicitis. Indications: This is a case of a 68-year-old patient, who comes to us with abdominal pain, at the [facility]. We repeated some imaging, shows once again some findings in the appendix this t sapna more consistent with appendicitis, so patient fully explained once again the need for laparoscopi c possible appendectomy. He signed a consent after fully explained again the benefits, alternatives, and risks which include but are not limited to infection, bleeding, damage to adjacent structures, an esthesia complication, VA, even . He also understands this may not relieve any symptoms. He mi ght need more than one surgical intervention. He understood, signed a consent. Description Of Procedure: The patient was brought to the operating room, placed in supine position. Anesthesia was done without complication. Abdominal area was prepped and draped in a sterile fashio n. Marcaine 0.5% was injected for local anesthetic followed by sharp incision of the skin in the inf raumbilical region, incision was carried down to fascia, which was opened under direct vision. Perit oneum was encountered, opened under direct vision. Vicryl #1 placed inside the fascia. Viraj troca r was carefully introduced. No bleeding was obtained. I placed 2 more trocars, 5 mm each one of the m, suprapubic and left lower quadrant under direct visualization. This allowed me to visualize the a miller of the appendix, looked inflamed, at least the distal part of the appendix. So, the base of the appendix seems to be spared, so we created a window in the base of the appendix, transected that with an Endo BARRY 45 mm 3.5, and the mesoappendix with an Endo BARRY 45 mm 2.5. Further hemostasis was obta ined with the help of 5 mm clips. Appendix removed from abdominal cavity using an EndoCatch through the umbilical incision. The area was irrigated and suctioned. No bowel leak. No bleeding. The asc ending colon and small bowel in that area shows no extraluminal tumor. At that moment, I proceeded t o remove the trocars under direct vision. Deflated the pneumoperitoneum. Closed the fascia with #1 Vicryl. Irrigated subcutaneous tissue, closed that with 0 chromic and skin with kristine. Sponge cou nt and instrument counts were correct. The patient tolerated the procedure well. The patient was se nt to recovery in stable condition. MEGAN/KATERIN Voice ID: [id number] Report ID: [id number]
[2019-05-22] MEDS: METRONIDAZOLE 500mg IVPB 500 MG/100 ML BAG IV SCH ×2 (00:29→05:36)
[2019-05-22] MEDS: PANTOPRAZOLE 40MG TABLET PO SCH (05:36)
[2019-05-22] MEDS: INSULIN -REGULAR HUMAN 50 UNIT/0.5 ML ML SQ SCH ×2 (07:30→11:30)
[2019-05-22] MEDS: SITAGLIPTIN PHOS 100 MG TAB PO SCH (09:00)
[2019-05-22] MEDS: CARVEDILOL 25 MG TAB PO SCH (09:00)
[2019-05-22] MEDS: BENAZEPRIL 10 MG TAB PO SCH (09:00)
[2019-05-22] MEDS: SPIRONOLACTONE 25 MG TABLET PO SCH (09:00)
[2019-05-22] MEDS: Ciprofloxacin 200mg IV 200 MG/100 ML IV.SOLN. IV SCH ×2 (09:00→09:43)
[2019-05-22] MEDS: INSULIN GLARGINE 100 UNITS/ML SQ SCH (09:00)
[2019-05-22] MEDS: AMLODIPINE 10 MG TAB PO SCH (09:00)
[2019-05-22] MEDS: DOCOSAHEXANOIC AC/EPA 1000 MG PO SCH (09:34)
[2019-05-22] MEDS: CITALOPRAM 10 MG TABLET PO SCH (09:34)
[2019-05-22] MEDS: FENOFIBRATE 160 MG TAB PO SCH (09:36)
[2019-05-22] MEDS: FUROSEMIDE 40 MG TABLET PO SCH ×2 (09:37→12:25)
[2019-05-22] MEDS: ALLOPURINOL 300 MG TAB PO SCH (09:37)
[2019-05-22] MEDS ORDERED: CIPROFLOXACIN HCL 250 MG TAB PO ONE (11:15)
[2019-05-22] MEDS ORDERED: metroNIDAZOLE 500 MG TABLET PO ONE (11:15)
--- NOTE | 2019-05-22 11:29 | P.DS ---
Admission Date: 05/20/19 Discharge Date: 05/22/19 Disposition: ROUTINE DISCHARGE Discharge Condition: GOOD Reason for Admission: ABDOMEN PAIN - Problems (1) Acute appendicitis Current Visit: Yes Status: Acute Qualifiers: Acute appendicitis type: with localized peritonitis Appendicitis perforation presence: without perforation (2) Diabetes Current Visit: Yes Status: Acute (3) CKD stage 4 due to type 2 diabetes mellitus Current Visit: Yes Status: Acute Brief History of Present Illness: MR. WHITE IS A DIABETIC WITH MANY COMPLICATIONS LIKE CAD, CKD, NEUROPATHY COMES WITH LOWER ABDOMEN NEFTALY ON R SIDE. HE HAD REPEAT CT SCAN TODAY TO CONFIRM APPENDICITIS AND DR. MULLER DID SURGERY THIS AM. FAMILY IS NOT COMFORTABLE TAKING HIM HOME THIS PM AND I UNDERSTAND HE HAS MANY CHRONIC CONDITIONS AND HIS BASELINE CREATININE IS ABOUT 3.6. Hospital Course: MR WHITE HAD APPENDICITIS. HE HAD APPENDECTOMY, HE IS DOING GREAT. DR. MULLER WAS READY FOR DC YESTERDAY. I KEPT HIM ONE MORE DAY HE HAS MANY MEDICAL ISSUES. HE IS STABLE TO GO HOME. Vital Signs/Physical Exam: Temp Pulse Resp BP Pulse Ox 98.2 F 50 15 121/60 95 05/22/19 08:00 05/22/19 09:37 05/22/19 08:00 05/22/19 09:37 05/22/19 08:00 Laboratory Data at Discharge: WBC 14.5 K/uL (4.3-10.9) H D 05/21/19 05:05 Hgb 9.7 g/dL (13.6-17.9) L 05/21/19 05:05 Hct 29.0 % (39.6-49.0) L 05/21/19 05:05 Plt Count 145 K/uL (152-406) L 05/21/19 05:05 Sodium 143 mmol/L (136-145) 05/21/19 05:05 Potassium 4.5 mmol/L (3.5-5.1) 05/21/19 05:05 BUN 75 mg/dL (7-18) H 05/21/19 05:05 Creatinine 3.68 mg/dL (0.55-1.3) H 05/21/19 05:05 Glucose 101 mg/dL (74-106) 05/21/19 05:05 Total Bilirubin 0.6 mg/dL (0.2-1.0) 05/21/19 05:05 AST 51 U/L (15-37) H 05/21/19 05:05 ALT 48 U/L (12-78) 05/21/19 05:05 Alkaline Phosphatase 32 U/L (45-117) L 05/21/19 05:05 Lipase 656 U/L (73-393) H 05/21/19 05:05 Home Medications: Allopurinol [Zyloprim*] 300 mg PO DAILY 05/21/19 Amlodipine [Norvasc*] 10 mg PO DAILY 05/21/19 Atorvastatin Calcium [Lipitor] 40 mg PO BEDTIME 05/21/19 Benazepril HCl 5 mg PO SEECOM 05/21/19 Carvedilol [Coreg*] 25 mg PO BID 05/21/19 Ciprofloxacin HCl [Cipro 500 MG Tablet] 500 mg PO BID #12 tab 05/21/19 Citalopram [Celexa*] 20 mg PO DAILY 05/21/19 Codeine/APAP [Tylenol W/Codeine #3 tab] 1 tab PO Q4HP PRN #30 tab 05/21/19 Esomeprazole Magnesium 40 mg PO DAILY 05/21/19 Fenofibrate [Tricor*] 145 mg PO BEDTIME 05/21/19 Furosemide [Lasix] 40 mg PO SEECOM 05/21/19 Hydralazine [Apresoline*] 25 mg PO SEECOM 05/21/19 Insulin Glargine Human [Lantus*] 70 units SQ SEECOM 05/21/19 Insulin Lispro [Humalog*] 45 units SQ SEECOM 05/21/19 [place]-3 Fatty Acids [[place]-3] 1,000 mg PO BID 05/21/19 Sitagliptin Phosphate [Januvia*] 50 mg PO DAILY 05/21/19 Spironolactone [Aldactone] 50 mg PO BID 05/21/19 metroNIDAZOLE [Flagyl] 500 mg PO Q6H #20 tablet 05/21/19 New Medications: Ciprofloxacin HCl [Cipro 500 MG Tablet] 500 mg PO BID #12 tab Codeine/APAP [Tylenol W/Codeine #3 tab] 1 tab PO Q4HP PRN #30 tab PRN Reason: Pain metroNIDAZOLE [Flagyl] 500 mg PO Q6H #20 tablet Patient Discharge Instructions: Keep area dry for 48h then may shower with dressing off. Diet: ADA Followup: León Muller MD [ACTIVE - CAN ADMIT] - 1 Week
[2019-05-22] MEDS ORDERED: POLYETHYL GLY 3350 17 GM/DOSE PO ONE (11:54)
[2019-05-22] MEDS ORDERED: INSULIN GLARGINE 100 UNITS/ML SQ SCH (17:00)
== END 2019-05-22 14:30 | disposition home or self-care (01) | DRG 342 ==
LOC: ER 15:01 → ERHOLD 20:40 → 2ND 21:06
PROVIDERS: ADMIT Internal Medicine; ATTEND Internal Medicine
PROC: 0DTJ4ZZ Resection of Appendix, Percutaneous Endoscopic Approach (ICD-10-PCS; principal; 2019-05-21 09:30)
DX: K35.30 Acute appendicitis with localized peritonitis, without perforation or gangrene (principal); N18.4 Chronic kidney disease, stage 4 (severe); I12.9 Hypertensive chronic kidney disease with stage 1 through stage 4 chronic kidney disease, or unspecified chronic kidney disease; E11.22 Type 2 diabetes mellitus with diabetic chronic kidney disease; E66.9 Obesity, unspecified; Z68.28 Body mass index [BMI] 28.0-28.9, adult; Z87.891 Personal history of nicotine dependence
CPT/HCPCS: 36415; 74176; 80048; 80076; 81003; 81015; 82962; 83605; 83690; 85025; 88304; 96361; 96365; 96375; 99285; J0744; J1170; J2250; J2405; J2543; J2704; J2710; J3010; J7030